=== PATIENT | female | born 1950 | race Caucasian/White ===

== ENCOUNTER 2017-03-14 07:43 | Day surgery (SDC) | payer MEDICARE ==
[~2017-03-14 07:43] MED LIST: RINGERS SOLUTION,LACTATED 1,000 ML IV PRN
--- OUTSIDE RECORDS SUMMARY | 2017-03-14 07:46 | XMS REPORT | Continuity of Care Document ---
:1950 Author Organization [facility] ([facility]) Address [address] [place] [place] [address] Phone [phone] Care Team Providers Name Role Phone LenicarlosamadorDemarcus Primary Care Provider [phone] Source Comments This disclosure is being made pursuant to the Care Everywhere program, applicable federal and state laws, and may not contain all informaitonavailable regarding this patient.[facility] ([facility]) Active Allergies and Adverse Reactions Allergen Noted Date Severity Reactions Comments Latex, Natural Rubber Urticaria red rash (Hives),Pruritus Other Agent OTHER some suture used inside for breast surgey. Let go and incision opened Penicillins Angioedema Promethazine 06/04/2010 OTHER [place] like bugs crawling on her skin. Reacts to high doses of medication Sulfadoxine Urticaria (Hives) Current Medications Prescription Sig. Disp. Refills Start Date End Date Status atenolol (TENORMIN) 50 take 50 mg by mouth Active mg tablet daily. citalopram (CELEXA) 40 take 40 mg by mouth Active mg tablet daily. fentanyl (DURAGESIC) apply 25 mcg on the Active 25 mcg/hr patch skin every 72 hours. oxycodone 5 mg capsule Take 10 mg by mouth Active daily as needed. As needed omeprazole (PRILOSEC) take 20 mg by mouth Active 20 mg extended release daily. capsule GLATIRAMER ACETATE inject 20 mg Active (COPAXONE SC) subcutaneously daily. daily ACETAMINOPHEN (TYLENOL Take 1,000 mg by Active EXTRA STRENGTH PO) mouth 2 times daily as needed. As needed fentanyl (DURAGESIC) apply 12 mcg on the Active 12 mcg/hr skin every 72 hours. MULTIVITAMINS Take 1 Tab by mouth Active (MULTIVITAMIN PO) daily. LEVETIRACETAM (KEPPRA Take 2 Tabs by mouth Active PO) daily. furosemide 20 mg Take 20 mg by mouth Active tablet as needed. ergocalciferol Take 1 Cap by mouth 12 Cap 0 06/12/2012 Active (VITAMIN D2) 50,000 every week. unit capsule Indications: VITAMIN D DEFICIENCY Active Problems Problem Noted Date Bariatric surgery status 06/05/2012 Back pain 12/25/2009 Pain in joint involving multiple sites 12/25/2009 Urine, incontinence, stress female 12/25/2009 Dyspnea on exertion 12/25/2009 Overview: With 1 flight of stairs Seizure disorder 12/25/2009 History of breast cancer 12/25/2009 Overview: Infiltrating ductal carcinoma, lumpectomy with radiation. Multiple sclerosis 12/25/2009 History of depression 12/25/2009 Overview: Situational at the time of of mother Abdominal pain, unspecified site 08/14/2006 Abdominal pain, generalized 08/14/2006 Other specified pre-operative examination 07/22/2006 Unspecified essential hypertension 07/22/2006 Abdominal or pelvic swelling, mass or lump, unspecified site 07/12/2006 Social History Tobacco Use Types Packs/Day Years Used Date Former Smoker Tobacco Cessation:Counseling Given: Yes Comments:quit 1990 Alcohol Use Drinks/Week oz/Week Comments No Last Filed Vital Signs Vital Sign Reading Time Taken Blood Pressure 114/72 06/08/2013 1:53 PM CDT Pulse 45 06/08/2013 1:53 PM CDT Temperature 36.1 C (97 F) 06/08/2013 1:53 PM CDT Respiratory Rate 18 12/24/2010 12:14 PM PSYCHIATRY ADULT PHYSICIAN Height 1.575 m (5' 2.01") 06/08/2013 1:53 PM CDT Weight 75 kg (165 lb 5.5 oz) 06/08/2013 1:53 PM CDT Body Mass Index 30.23 06/08/2013 1:53 PM CDT Oxygen Saturation 94% 05/07/2010 8:00 AM CDT Plan of Care Health Maintenance Due Date Last Done Comments HCV Screening 1950 Hepatitis B Vaccine (1 of 3 1950 - Primary Series) Tdap Vaccine 1963 Td Vaccine 1970 Cervical Cancer Screening 1982 Mammogram 1992 Colonoscopy 2002 Zoster Vaccine 2012 Influenza Vaccine: Seasonal 06/07/2016 (#1) Lipid Disorder Screening 06/08/2018 06/08/2013, Additional history exists 06/08/2012, 05/13/2011 Results from Last 3 Months Not on file
[2017-03-14] MEDS ORDERED: RINGERS SOLUTION,LACTATED 1,000 ML IV ONE (08:28)
[2017-03-14] MEDS ORDERED: PANTOPRAZOLE SODIUM 40 MG in NORMAL SALINE 100 ML IV ONE (10:32)
[2017-03-14] MEDS ORDERED: RINGERS SOLUTION,LACTATED 1,000 ML IV PRN (10:32)
[2017-03-14] MEDS ORDERED: PANTOPRAZOLE SODIUM 40 MG/100 ML PIGGYBACK IV ONE (10:45)
[2017-03-14 11:30] VITALS: BP 165/66
--- NOTE | 2017-03-14 18:15 | OR ---
Operative Report - Dictated Report Narrative: Operative Report Date of operation: 03/14/2017 Preoperative diagnosis: Epigastric pain. No prior dedicated colon studies Postoperative diagnosis: Significant inflammation of the gastric pouch with marginal ulcer. Normal colonoscopy Operation: Esophagogastrojejunoscopy. Colonoscopy Surgeon: Dr Hurtado Anesthesia: FLORES ARAUJO CRNA Indications for procedure: The patient is a 66-year-old female referred by Dr. Delgado. She has had epigastric pain relieved by proton pump inhibitor. She has had a previous gastric bypass. She has had no prior dedicated colon studies. There is no family history of colon cancer Findings: Significant inflammation of the gastric pouch with what appeared to be a Billroth II anastomosis with marginal ulcer. Normal colonoscopy Narrative of procedure: The patient was identified preoperatively, and prior to the administration of anesthetic a multidisciplinary timeout was observed EGD: With the patient in the recumbent position, a bite-block was placed, intravenous sedation was administered, and the patient's eyes covered with a towel. The flexible fiberoptic gastroscope was advanced into the posterior pharynx which appeared normal. The supraglottic larynx appeared normal. The cords appeared normal, moved well, and opposed in the midline. The scope was advanced under direct vision into the proximal esophagus which appeared normal. The esophagus appeared freely distensible with normal mucosa. The esophageal mucosa appeared normal down to the gastroesophageal junction where the mucosal transition was sharp but with some mild inflammation. The GE junction appeared normally distensible. The scope was advanced into the gastric pouch. There was erythema and friability of the pouch with several flecks of coffee ground material. The anastomosis was widely patent and had the appearance of a Billroth II type anastomosis. Indeed, afferent and efferent limbs of small bowel could be intubated and these appeared normal. There was erythema and a small healing marginal ulceration on the small bowel adjacent to the anastomosis. In addition a braided suture was seen. The insufflated air was removed, the scope was withdrawn from the patient, and this portion of the procedure terminated COLONOSCOPY: The patient was then placed in the left lateral position, and the perineum was inspected. There was no evidence of pilonidal disease or skin breakdown. The external appearance of the anus was normal. Sphincter tone was good. The flexible fiberoptic colonoscope was inserted into the rectum which was insufflated with air. The rectal mucosa and submucosal vascular pattern appeared normal, the prep was seen to be complete. The scope was advanced through the sigmoid colon, up the descending colon, and around the splenic flexure where the triangular haustral architecture of the transverse colon was seen. The scope was advanced across the transverse colon, around the hepatic flexure to the cecum, where the confluence of tenia and the ileocecal valve were identified. The mucosa at this level appeared normal. The scope was then slowly withdrawn in a circular fashion so that all aspects of colonic mucosa were inspected. The colon was normal in course and caliber. The haustral architecture appeared well preserved throughout with no evidence of external compression. The mucosa and submucosal vascular pattern appeared normal, specifically there was no gross evidence to suggest colitis or inflammatory bowel disease and no AV malformations were seen. No diverticulosis was demonstrated. No polyps were encountered. The scope was gradually withdrawn to the level of the rectum. As much insufflated air as possible was removed. The scope was withdrawn from the patient and the procedure terminated. The patient tolerated the anesthetic and procedure well without complication and was transferred back to the ambulatory surgery area awake and in stable condition. The patient remained stable throughout a period of postoperative observation. She denied abdominal discomfort, was able to tolerate by mouth intake, and was up without assistance. I shared the operative findings with the patient and she was given copies of the photographs which appear in the medical record. She was given a single dose of Protonix 40 mg IV prior to discharge. She was discharged home with instructions not to engage in hazardous activity today, but may resume normal activity tomorrow, and advance diet as tolerated. She is to continue those medications as listed in the history and physical exam. RECOMMENDATION: She should be maintained on a proton pump inhibitor. Consideration could be given to an upper GI series to further define the anatomy. Colon surveillance in 10 years depending upon findings and symptoms Reviewed and electronically signed
== END 2017-03-14 07:44 | disposition home or self-care (01) ==
LOC: AMB 07:43
PROVIDERS: ATTEND Surgery
PROC: 0DJD8ZZ Inspection of Lower Intestinal Tract, Via Natural or Artificial Opening Endoscopic (ICD-10-PCS; principal; 2017-03-14 09:40)
PROC: 0DJ08ZZ Inspection of Upper Intestinal Tract, Via Natural or Artificial Opening Endoscopic (ICD-10-PCS; 2017-03-14 09:40)
DX: Z12.11 Encounter for screening for malignant neoplasm of colon (principal); K29.70 Gastritis, unspecified, without bleeding; I12.9 Hypertensive chronic kidney disease with stage 1 through stage 4 chronic kidney disease, or unspecified chronic kidney disease; N18.3 Chronic kidney disease, stage 3 (moderate); E78.5 Hyperlipidemia, unspecified; G35 Multiple sclerosis; D64.9 Anemia, unspecified; F32.9 Major depressive disorder, single episode, unspecified; F17.200 Nicotine dependence, unspecified, uncomplicated; Z68.24 Body mass index [BMI] 24.0-24.9, adult
CPT/HCPCS: 43235; G0121